=== PATIENT | female | born 1955 | race Asian ===

== ENCOUNTER 2019-07-17 13:22 | Emergency (ER) | payer OTHER ==
[~2019-07-17] VITALS: Ht 160 cm; Wt 63.5 kg
[2019-07-17 13:22] VITALS: BP_SYST 151
--- NOTE | 2019-07-17 13:22 | NUR ---
BROUGHT IN BY [facility] AND PLACED IN BED #6, TRIAGED, REPORT GIVEN TO BRETT
--- NOTE | 2019-07-17 13:30 | NUR ---
DINA Carter at bedside examining patient.
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
[2019-07-17] MEDS ORDERED: IBUPROFEN 600 MG TABLET PO ONE (13:45)
--- NOTE | 2019-07-17 15:20 | NUR ---
Navneet wrap applied and sling to L arm.Pt tolerated well.
--- NOTE | 2019-07-17 15:30 | NUR ---
Patient given written and verbal discharge instructions and verbalizes understanding. ER MD discussed with patient the results and treatment provided. Patient in stable condition. ID arm band removed. Rx of Naproxen given. Patient educated on pain management and to follow up with PMD. Pain Scale 2. Opportunity for questions provided and answered. Medication side effect fact sheet provided.
[2019-07-17 16:10] VITALS: BP_SYST 152
== END 2019-07-17 15:30 | disposition home or self-care (01) ==
LOC: SED 13:22
DX: S93.602A Unspecified sprain of left foot, initial encounter (principal); S40.012A Contusion of left shoulder, initial encounter; S70.02XA Contusion of left hip, initial encounter; I10 Essential (primary) hypertension; V03.90XA Pedestrian on foot injured in collision with car, pick-up truck or van, unspecified whether traffic or nontraffic accident, initial encounter; Y93.89 Activity, other specified; Y92.488 Other paved roadways as the place of occurrence of the external cause; Y99.8 Other external cause status
CPT/HCPCS: 73030; 73502; 99283; 99284